=== PATIENT | female | born 1985 | race Caucasian/White ===

== ENCOUNTER 2017-03-30 09:12 | Emergency (ER) | payer MEDICAID ==
[2017-03-30 09:37] VITALS: BP 103/55
--- NOTE | 2017-03-30 10:21 | ED ---
Upper Extremity Pain - HPI Summary HPI Summary: Pt presents to ED with complaint of b/l hand paresthesia and edema. Pt states she has a h/o posisble rheumatoid arthritis (Rh neg serotype) and recent dx of hepatitis C. Pt states in January her methotrexate and prednisone was discontinued due to her hepatitis. Pt states feels her hands are tingling. states feels swollen or no difficulty with flexion, extension. Pt with mild extension of paresthesia right distal forearm. No fevers, chills. No trauma. No erythema. Pt states feels sx slight increase with texting. 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 Pt took Motrin without relief - History of Current Complaint Chief Complaint: UCGeneralIllness Stated Complaint: BILAT HAND NUMBNESS Time Seen by Provider: 03/30/17 09:58 Hx Obtained From: Patient Hx Last Menstrual Period: november Onset/Duration: Started Days Ago Timing: Intermittent, Lasting Hours Severity Initially: Mild Severity Currently: Mild Character: Aching, Burning Aggravating Factor(s): Movement Alleviating Factor(s): Other - rest Associated Signs & Symptoms: Positive: Swelling - Allergies/Home Medications Allergies/Adverse Reactions: Allergies Allergy/AdvReac Type Severity Reaction Status Date / Time Ketorolac Tromethamine Allergy Headache Verified 03/30/17 09:30 [From Toradol] Home Medications: Home Medications Caffeine-Magnesium Salicylate [Diurex 50-162.5 mg] 1 tab PO DAILY 03/30/17 [ History Confirmed 03/30/17] Multiple Vitamin [Multivitamins] 1 cap PO DAILY 03/30/17 [History Confirmed ] PMH/Surg Hx/FS Hx/Imm Hx Previously Healthy: Yes Endocrine/Hematology History: Denies: Hx Anticoagulant Therapy, Hx Diabetes Respiratory History: Denies: Hx Asthma GI History: Reports: Other GI Disorders - Hep C Musculoskeletal History: Reports: Hx Rheumatoid Arthritis, Other Musculoskeletal History - RA - Surgical History Surgery Procedure, Year, and Place: Cholecystectomy, 2010, [facility], Tubal Ligation, 2008, [facility]; SVT Ablation, 2004, [facility], [place]. uterine ablation Infectious Disease History: Yes Infectious Disease History: Reports: Hx Hepatitis - C Denies: History Other Infectious Disease, Traveled Outside the in Last 30 Days - Family History Known Family History: Positive: Cardiac Disease, Diabetes, Other - RA. - Social History Occupation: Employed Full-time - [employer] Alcohol Use: None Substance Use Type: Reports: None Smoking Status (MU): Former Smoker Type: Cigarettes Amount Used/How Often: 1/2 PPD Length of Time of Smoking/Using Tobacco: 22 Years Have You Smoked in the Last Year: Yes Review of Systems Constitutional: Negative Eyes: Negative ENT: Negative Cardiovascular: Negative Respiratory: Negative Gastrointestinal: Negative Genitourinary: Negative Positive: Other - b/l hand stiffnes, paresthesia Skin: Negative Positive: Paresthesia Psychological: Normal All Other Systems Reviewed And Are Negative: Yes Physical Exam Triage Information Reviewed: Yes Vital Signs On Initial Exam: Initial Vitals Temp Pulse Resp BP Pulse Ox 99.4 F 71 16 103/55 98 03/30/17 09:31 03/30/17 09:31 03/30/17 09:31 03/30/17 09:31 03/30/17 09:31 Vital Signs Reviewed: Yes Appearance: Positive: Well-Appearing - Pt texting, scrolling on phone in NAD, No Pain Distress, Well-Nourished Skin: Positive: Warm, Skin Color Reflects Adequate Perfusion Head/Face: Positive: Normal Head/Face Inspection Eyes: Positive: Normal, EOMI, ROBERT ENT: Positive: Normal ENT inspection, Hearing grossly normal, Pharynx normal, TMs normal Neck: Positive: Supple, Nontender, No Lymphadenopathy Respiratory/Lung Sounds: Positive: Clear to Auscultation, Breath Sounds Present Cardiovascular: Positive: Normal, RRR, Pulses are Symmetrical in both Upper and Lower Extremities, Other - No edema appreciated b/l hand Musculoskeletal: Positive: Other - b/l Full ROM: abduction, extension shoulders , flex/ext elbow, wrist 5/5 grasp + thumb up, a ok, finger spread, finger cross Neurological: Positive: Alert, Oriented to Person Place, Time, Other - Pt reports paresthesia middle and pointer finger b/l hand R>L Sx increased phalen test b/l R>L Psychiatric: Positive: Normal AVPU Assessment: Alert - [place] Coma Scale Best Eye Response: 4 - Spontaneous Best Motor Response: 6 - Obeys Commands Best Verbal Response: 5 - Oriented Diagnostics - Vital Signs Vital Signs Temp Pulse Resp BP Pulse Ox 03/30/17 09:31 99.4 F 71 16 103/55 98 - Laboratory Lab Statement: Any lab studies that have been ordered have been reviewed, and results considered in the medical decision making process. Course/Dx - Course Assessment/Plan: Pt with n/l sensation of paresthesia R>L hand increasing x 1 week. Pt with non concerning exam, + phalen test R>L. Pt iwth RHD. Will start gabapentin (pt has previously taken). wrist splint. Pt declined work note. will f.u with pcp and field marketing associate. Pt in agreement with plan. concern for ?early carpal tunnel - Diagnoses Provider Diagnoses: Paresthesia and pain of both upper extremities Discharge - Discharge Plan Condition: Stable Disposition: HOME Prescriptions: Gabapentin CAP(*) [Neurontin 100 mg CAP(*)] 200 mg PO TID #30 cap Patient Education Materials: Paresthesia (ED) Referrals: Mitchel Barragan MD [Primary Care Provider] - Additional Instructions: - wear wrist support for comfort - Take gabapentin 3 times a day as prescribed - Take ibuprofen, 3 tablets, every6 hours for pain. Take with food - Elevate your arms to help with swelling and pain - decrease fine motor activities - cell phone, computer mouse, etc - contact your doctor tomorrow to schedule a follow-up appointment. contact your doctor or return with questions or concerns
== END 2017-03-30 10:37 | disposition home or self-care (01) ==
LOC: UCCORT 09:12
DX: R20.2 Paresthesia of skin (principal); M79.642 Pain in left hand; M79.641 Pain in right hand; M06.9 Rheumatoid arthritis, unspecified; Z86.19 Personal history of other infectious and parasitic diseases; Z90.49 Acquired absence of other specified parts of digestive tract; Z88.5 Allergy status to narcotic agent; Z87.891 Personal history of nicotine dependence
CPT/HCPCS: 99213; G0463